=== PATIENT | male | born 1945 | race Caucasian/White ===

== ENCOUNTER 2022-10-14 05:04 | Emergency (ER) | payer OTHER, MEDICARE ==
[~2022-10-14] VITALS: Ht 182.9 cm; Wt 82.7 kg
--- NOTE | 2022-10-14 05:49 | NUR ---
I agree with Gabriele Kohli assessment.
[2022-10-14 06:07] LABS: CLARITY,URINE CLOUDY (Clear); COLOR,URINE YELLOW (Yellow); GLUCOSE, URINE NEGATIVE (Neg); KETONES,URINE NEGATIVE (Neg); LEUKOCYTE ESTERASE ,URINE LARGE (Neg); NITRITES, URINE POSITIVE (Neg); OCCULT BLOOD,URINE MODERATE (Neg); PH,URINE 6.5 (4.8-8.0); PROTEIN,URINE TRACE mg/dl (Neg); UROBILINOGEN,URINE 0.2 E.U/dL (0.2-1.0)
[2022-10-14 06:09] LABS: UA COLLECTION TYPE CLN CATCH MIDSTREAM
[2022-10-14 06:11] LABS: BASOPHILS # (AUTO) 0.1 X10'3 (0-0.2); BASOPHILS % (AUTO) 0.7 % (0-1); EOSINOPHILS % (AUTO) 0 % (0-6); HEMOGLOBIN 14.7 g/dl (14.0-17.9); LYMPHOCYTES # (AUTO) 0.6 X10'3 (1.1-4.8); LYMPHOCYTES % (AUTO) 4.4 % (21-51); MEAN CORPUSCULAR HEMOGLOBIN 28.9 PG (27.0-31.0); MEAN CORPUSCULAR HGB CONC 32.6 g/dL (33.0-36.5); MEAN CORPUSCULAR VOLUME 88.5 FL (78-98); MEAN PLATELET VOLUME 7.3 FL (7.4-10.4); MONOCYTES # (AUTO) 0.8 X10'3 (0-0.9); MONOCYTES % (AUTO) 6.4 % (2-12); NEUTROPHILS # (AUTO) 11.2 X10'3 (1.8-7.7); NEUTROPHILS % (AUTO) 88.5 % (42-75); PLATELET COUNT 211 X10'3 (140-440); RED BLOOD COUNT 5.09 X10'6 (4.70-6.10); RED CELL DISTRIBUTION WIDTH 14.2 % (11.5-14.5); WHITE BLOOD COUNT 12.7 X10'3 (4.5-11.0)
[2022-10-14 06:14] LABS: BACTERIA,URINE 4+ /HPF (Neg); MUCUS STRANDS NONE SEEN /LPF (Neg); SQUAMOUS EPITHELIAL CELL,UR NONE SEEN /LPF (FEW); WBC CLUMPS,URINE MODERATE /HPF (NEGATIVE); WBC,URINE 50-100 /HPF (0-4)
[2022-10-14 06:21] LABS: ALANINE AMINOTRANSFERASE 25 U/L (12-78); ALBUMIN 3.5 G/DL (3.4-5.0); ALBUMIN/GLOBULIN RATIO 1.2 (1.1-1.5); ALKALINE PHOSPHATASE 83 IU/L (46-116); ANION GAP 8 (8-16); ASPARTATE AMINO TRANSFERASE 15 U/L (10-37); BILIRUBIN,TOTAL 0.7 MG/DL (0.1-1.0); BLOOD UREA NITROGEN 14 MG/DL (7-18); BUN/CREATININE RATIO 15.1 (5.4-32.0); CHLORIDE 103 MMOL/L (99-107); CREATININE 0.93 MG/DL (0.60-1.10); GLUCOSE 148 MG/DL (70-104); SODIUM 135 MMOL/L (135-145); TOTAL CARBON DIOXIDE 23.8 MMOL/L (24-32); TOTAL PROTEIN 6.5 G/DL (6.4-8.2); eGFR 79 ML/MIN
[2022-10-14] MEDS ORDERED: normal saline 1000ML IV soln IVB ONE ×2 (06:30→08:40)
[2022-10-14] MEDS ORDERED: phenazopyridine 100mg tablet PO ONE (06:30)
[2022-10-14] MEDS ORDERED: CefTRIAXone 2gm/D5W 50ml BAG 50 ML IV ONE (06:30)
[2022-10-14] MEDS ORDERED: morphine 4 MG/ML inj SYRINge IV ONE (09:20)
--- NOTE | 2022-10-14 11:45 | NUR ---
notified provider that pt is still c/o 07/18 pain ,unable to urinate ,bladder scan the pt retaining more then 512 ml of urine .verbal order from md to give fentanyl 50 mcg iv once, urojet and dubois catherterization for urinary retention.will follow the orders.
[2022-10-14] MEDS ORDERED: LIDOcaine 2% 10ml TOPICAL JELLY (Urojet) TP ONE (11:55)
[2022-10-14] MEDS ORDERED: fentaNYL/PF 50MCG/1 ML 2ML syringe IV ONE (11:55)
[2022-10-14] MEDS ORDERED: CEPH-585 PO (11:56)
[2022-10-14] MEDS ORDERED: FLO0.4C PO (12:35)
[2022-10-14 13:48] VITALS: BP 138/84
== END 2022-10-14 13:53 | disposition home or self-care (01) ==
LOC: ER 05:05
DX: N39.0 Urinary tract infection, site not specified (principal); R33.9 Retention of urine, unspecified; G89.29 Other chronic pain; M54.50 Low back pain, unspecified
CPT/HCPCS: 36415; 80053; 81001; 84145; 85025; 87077; 87088; 87186; 96361; 96365; 96375; 99285; J0696; J2270; J3010; J7030; A4358

== ENCOUNTER 2022-10-27 02:57 | Emergency (ER) | payer OTHER, MEDICARE ==
[~2022-10-27] VITALS: Ht 182.9 cm; Wt 84.1 kg
[~2022-10-27 02:57] MED LIST: CEPH-585 PO; FLO0.4C PO
[2022-10-27 03:02] VITALS: BP 107/86
[2022-10-27 04:09] LABS: CLARITY,URINE TURBID (Clear); COLOR,URINE YELLOW (Yellow); GLUCOSE, URINE NEGATIVE (Neg); KETONES,URINE NEGATIVE (Neg); LEUKOCYTE ESTERASE ,URINE MODERATE (Neg); NITRITES, URINE POSITIVE (Neg); OCCULT BLOOD,URINE LARGE (Neg); PROTEIN,URINE 100 mg/dl (Neg); UROBILINOGEN,URINE 0.2 E.U/dL (0.2-1.0)
[2022-10-27 04:20] LABS: UA COLLECTION TYPE NON-SPECIFIED
[2022-10-27 04:44] LABS: BACTERIA,URINE 3+ /HPF (Neg); RBC,URINE 20-50 /HPF (0-2); SQUAMOUS EPITHELIAL CELL,UR FEW /LPF (FEW); WBC,URINE TNTC /HPF (0-4)
[2022-10-27 04:45] LABS: TRANSITIONAL EPI CELLS,URINE FEW /HPF
[2022-10-27] MEDS ORDERED: CEPH-585 PO (04:57)
[2022-10-27] MEDS ORDERED: cephalexin 250mg capsule PO ONE (05:00)
[2022-10-27] MEDS ORDERED: HYDROcodone/acetaminophen 5mg/325mg tablet PO ONE (05:15)
--- NOTE | 2022-10-27 05:21 | NUR ---
cdb changed to leg bag.
== END 2022-10-27 05:22 | disposition home or self-care (01) ==
LOC: ER 02:57
DX: N39.0 Urinary tract infection, site not specified (principal); G89.29 Other chronic pain; M54.50 Low back pain, unspecified
CPT/HCPCS: 51702; 81001; 87077; 87088; 87186; 99284; A4358

== ENCOUNTER 2022-10-30 02:54 | Emergency (ER) | payer OTHER, MEDICARE ==
[~2022-10-30] VITALS: Ht 182.9 cm; Wt 84.1 kg
[2022-10-30 03:01] VITALS: BP 132/78
== END 2022-10-30 05:04 | disposition home or self-care (01) ==
LOC: ER 02:55
DX: R31.9 Hematuria, unspecified (principal); N39.0 Urinary tract infection, site not specified; G89.29 Other chronic pain; Z87.442 Personal history of urinary calculi; Z87.440 Personal history of urinary (tract) infections; Z98.890 Other specified postprocedural states; Z79.2 Long term (current) use of antibiotics; Z79.899 Other long term (current) drug therapy
CPT/HCPCS: 99281; A4358

== ENCOUNTER 2022-12-05 02:53 | Emergency (ER) | payer OTHER, MEDICARE ==
[~2022-12-05] VITALS: Ht 182.9 cm; Wt 85.5 kg
[~2022-12-05 02:53] MED LIST changes: -FLO0.4C PO
[2022-12-05 03:35] LABS: BASOPHILS % (AUTO) 0.3 % (0-1); EOSINOPHILS % (AUTO) 0.1 % (0-6); HEMATOCRIT 45.1 % (42.0-52.0); HEMOGLOBIN 15.1 g/dl (14.0-17.9); LYMPHOCYTES # (AUTO) 1.7 X10'3 (1.1-4.8); LYMPHOCYTES % (AUTO) 16.8 % (21-51); MEAN CORPUSCULAR HEMOGLOBIN 29.9 PG (27.0-31.0); MEAN CORPUSCULAR HGB CONC 33.5 g/dL (33.0-36.5); MEAN CORPUSCULAR VOLUME 89.1 FL (78-98); MONOCYTES # (AUTO) 1.2 X10'3 (0-0.9); MONOCYTES % (AUTO) 12.3 % (2-12); NEUTROPHILS # (AUTO) 7.2 X10'3 (1.8-7.7); NEUTROPHILS % (AUTO) 70.5 % (42-75); PLATELET COUNT 219 X10'3 (140-440); RED BLOOD COUNT 5.06 X10'6 (4.70-6.10); RED CELL DISTRIBUTION WIDTH 14.5 % (11.5-14.5); WHITE BLOOD COUNT 10.1 X10'3 (4.5-11.0)
[2022-12-05 03:47] LABS: CLARITY,URINE CLOUDY (Clear); GLUCOSE, URINE NEGATIVE (Neg); KETONES,URINE TRACE mg/dl (Neg); LEUKOCYTE ESTERASE ,URINE MODERATE (Neg); NITRITES, URINE NEGATIVE (Neg); OCCULT BLOOD,URINE MODERATE (Neg); PH,URINE 5.5 (4.8-8.0); PROTEIN,URINE 100 mg/dl (Neg); UROBILINOGEN,URINE 0.2 E.U/dL (0.2-1.0)
[2022-12-05 04:00] LABS: COLOR,URINE DARK YELLOW (Yellow); UA COLLECTION TYPE CLN CATCH MIDSTREAM
[2022-12-05 04:01] LABS: WBC,URINE TNTC /HPF (0-4)
[2022-12-05 04:02] LABS: BACTERIA,URINE 1+ /HPF (Neg); MUCUS STRANDS MANY /LPF (Neg); SQUAMOUS EPITHELIAL CELL,UR NONE SEEN /LPF (FEW); TRANSITIONAL EPI CELLS,URINE FEW /HPF; WBC CLUMPS,URINE FEW /HPF (NEGATIVE)
[2022-12-05 04:03] LABS: CAL OXALATE CRYSTALS 1+ /HPF (NEGATIVE); HYALINE CASTS 0-3 /LPF (NEGATIVE)
[2022-12-05 04:05] LABS: ALANINE AMINOTRANSFERASE 16 U/L (12-78); ALBUMIN 3.4 G/DL (3.4-5.0); ALBUMIN/GLOBULIN RATIO 0.9 (1.1-1.5); ALKALINE PHOSPHATASE 102 IU/L (46-116); ANION GAP 5 (8-16); ASPARTATE AMINO TRANSFERASE 19 U/L (10-37); BILIRUBIN,TOTAL 1.1 MG/DL (0.1-1.0); BLOOD UREA NITROGEN 15 MG/DL (7-18); BUN/CREATININE RATIO 14.4 (5.4-32.0); CALCIUM 9.9 MG/DL (8.5-10.1); CHLORIDE 98 MMOL/L (99-107); CREATININE 1.04 MG/DL (0.60-1.10); GLUCOSE 139 MG/DL (70-104); SODIUM 130 MMOL/L (135-145); TOTAL CARBON DIOXIDE 27.4 MMOL/L (24-32); TOTAL PROTEIN 7.3 G/DL (6.4-8.2); eGFR 70 ML/MIN
[2022-12-05 06:40] VITALS: BP 109/78
--- NOTE | 2022-12-05 06:57 | NUR ---
Pt seen by Dr. Carcamo
[2022-12-05] MEDS ORDERED: normal saline 1000ML IV soln IVB ONE (07:10)
[2022-12-05] MEDS ORDERED: CefTRIAXone/D5W-Rocephin 1gm 50 ML IV ONE (07:10)
[2022-12-05] MEDS ORDERED: SULF1TAB49 PO (09:10)
== END 2022-12-05 09:35 | disposition home or self-care (01) ==
LOC: ER 02:54
DX: N39.0 Urinary tract infection, site not specified (principal); N20.0 Calculus of kidney; G89.29 Other chronic pain; M54.9 Dorsalgia, unspecified; Z87.448 Personal history of other diseases of urinary system
CPT/HCPCS: 36415; 71045; 76770; 80053; 81001; 83605; 84145; 85025; 87040; 87077; 87088; 87186; 96365; 99285; J0696; J7030